=== PATIENT | male | born 1955 | race Two or more races ===

== ENCOUNTER 2021-09-30 21:34 | Inpatient (IN) | payer MEDICAID, MEDICARE ==
[~2021-09-30] VITALS: Ht 157.5 cm; Wt 90.9 kg
[2021-09-30] MEDS ORDERED: acetaminophen 325mg tablet PO STA (22:34)
[2021-09-30] MEDS ORDERED: enoxaparin 100mg/ml syringe SUBCUT ONE (22:35)
[2021-09-30 23:11] LABS: BASOPHILS % (AUTO) 0.3 % (0-1); EOSINOPHILS % (AUTO) 0.4 % (0-6); HEMATOCRIT 39.8 % (42.0-52.0); HEMOGLOBIN 13.7 g/dl (14.0-17.9); LYMPHOCYTES # (AUTO) 1.3 X10'3 (1.1-4.8); LYMPHOCYTES % (AUTO) 20.4 % (21-51); MEAN CORPUSCULAR HEMOGLOBIN 30.2 PG (27.0-31.0); MEAN CORPUSCULAR HGB CONC 34.4 g/dL (33.0-36.5); MEAN CORPUSCULAR VOLUME 87.9 FL (78-98); MEAN PLATELET VOLUME 8.8 FL (7.4-10.4); MONOCYTES # (AUTO) 0.4 X10'3 (0-0.9); MONOCYTES % (AUTO) 6.9 % (2-12); NEUTROPHILS # (AUTO) 4.5 X10'3 (1.8-7.7); PLATELET COUNT 278 X10'3 (140-440); RED BLOOD COUNT 4.53 X10'6 (4.70-6.10); RED CELL DISTRIBUTION WIDTH 13.3 % (11.5-14.5); WHITE BLOOD COUNT 6.3 X10'3 (4.5-11.0)
[2021-09-30 23:19] LABS: D-DIMER 0.74 MG/L FEU (0-0.50)
[2021-09-30 23:32] LABS: ALANINE AMINOTRANSFERASE 33 U/L (12-78); ALBUMIN 2.9 G/DL (3.4-5.0); ALBUMIN/GLOBULIN RATIO 0.8 (1.1-1.5); ALKALINE PHOSPHATASE 70 IU/L (46-116); ANION GAP 6 (8-16); ASPARTATE AMINO TRANSFERASE 29 U/L (10-37); BILIRUBIN,TOTAL 0.4 MG/DL (0.1-1.0); BLOOD UREA NITROGEN 15 MG/DL (7-18); BUN/CREATININE RATIO 20.8 (5.4-32.0); C-REACTIVE PROTEIN 10.59 MG/DL (0.0-0.5); CALCIUM 8.3 MG/DL (8.5-10.1); CHLORIDE 107 MMOL/L (99-107); CREATININE 0.72 MG/DL (0.60-1.10); GLUCOSE 133 MG/DL (70-104); MAGNESIUM 2.4 MG/DL (1.5-2.4); POTASSIUM 4.2 MMOL/L (3.5-5.1); SODIUM 139 MMOL/L (135-145); TOTAL CARBON DIOXIDE 25.9 MMOL/L (24-32); TOTAL PROTEIN 6.6 G/DL (6.4-8.2); eGFR > 90 ML/MIN
[2021-09-30] MEDS ORDERED: iohexol 350MG/ML 100ml bottle IV ONE (23:34)
--- NOTE | 2021-10-01 01:20 | NUR ---
PATIENT TAKEN OFF OF O2 AND WALKED AROUND IN CIRCLES IN HIS ROOM. SATURATIONS DROPPED TO 87%; PATIENT WAS SYMPTOMATIC WITH MILD DYSPNEA, FATIGUE, AND "FELT THE URGE TO COUGH." DR. PEREZ WAS INFORMED. PATIENT WAS PLACED BACK ON 2L AND SATURATION STABILIZED AT 91%.
--- NOTE | 2021-10-01 01:45 | NUR ---
TENISHA, THE PATIENT'S DAUGHTER, PHONE NUMBER IS [phone]. SHE HAS BEEN TRANSLATING FOR THE PATIENT.
[2021-10-01] MEDS ORDERED: DEXAMETHASONE 6 MG TABLET PO STA (01:48)
[2021-10-01] MEDS ORDERED: REMDESIVIR INJ 200 MG in normal saline 100ml IV soln 100 ML IV ONE (01:50)
[2021-10-01] MEDS ORDERED: acetaminophen 325mg tablet PO PRN ×2 (02:00)
[2021-10-01] MEDS ORDERED: magnesium 2GM in 50ml NS 50 ML IV PRN (02:00)
[2021-10-01] MEDS ORDERED: potassium CL 10mEq/100ml bag 100 ML IV PRN (02:00)
[2021-10-01] MEDS ORDERED: ondansetron/PF 4mg/2ml inj IV PRN (02:00)
[2021-10-01] MEDS ORDERED: magnesium 4gm in 100ml NS 100 ML IV PRN (02:00)
[2021-10-01] MEDS ORDERED: potassium Cl 20 mEq SR tablet PO PRN ×2 (02:00)
[2021-10-01] MEDS ORDERED: magnesium Cl slow-release 64mg tablet PO PRN (02:00)
[2021-10-01] MEDS ORDERED: CefTRIAXone 2gm/D5W 50ml BAG 50 ML IV ONE (02:05)
[2021-10-01] MEDS ORDERED: normal saline 1000ML IV soln IVB ONE (02:55)
[2021-10-01 04:18] VITALS: BP 155/86
[2021-10-01] MEDS ORDERED: DEXAMETHASONE 6 MG TABLET PO SCH (08:00)
[2021-10-01] MEDS ORDERED: enoxaparin 60mg/0.6ml syringe SUBCUT SCH (08:00)
[2021-10-01] MEDS: K and/or MAG REPLACEMENT MC SCH ×2 (08:00→20:00)
[2021-10-01] MEDS ORDERED: enoxaparin 30mg/0.3ml syringe SUBCUT SCH (08:00)
[2021-10-01 10:00] VITALS: BP 115/42
[2021-10-01] MEDS ORDERED: SIMV-42 PO (10:16)
[2021-10-01] MEDS ORDERED: TERA5CAP4 PO (10:16)
[2021-10-01] MEDS: dexamethasone 4mg/ml inj IV SCH ×2 (11:33→20:00)
[2021-10-01] MEDS: enoxaparin 40mg/0.4ml syringe SQ SCH ×2 (11:34→20:00)
[2021-10-01 14:00] VITALS: BP 139/64
[2021-10-01 17:37] VITALS: BP 131/67
--- NOTE | 2021-10-01 18:02 | NUR ---
Patient has been taking off oxygen to walk around in the room, which is the reason behind the lower O2 sat. he has been instructed to call for help and to keep his oxygen on as ordered. daughter is aware.
[2021-10-01] MEDS ORDERED: temazepam 15mg capsule PO PRN (21:00)
[2021-10-01 22:00] VITALS: BP 136/63
[2021-10-02 01:34] VITALS: BP 110/65
[2021-10-02 06:00] VITALS: BP 143/53
[2021-10-02 07:48] LABS: BASOPHILS % (AUTO) 0.1 % (0-1); EOSINOPHILS % (AUTO) 0 % (0-6); HEMATOCRIT 38.8 % (42.0-52.0); HEMOGLOBIN 12.9 g/dl (14.0-17.9); LYMPHOCYTES # (AUTO) 0.8 X10'3 (1.1-4.8); LYMPHOCYTES % (AUTO) 10.4 % (21-51); MEAN CORPUSCULAR HEMOGLOBIN 29.9 PG (27.0-31.0); MEAN CORPUSCULAR HGB CONC 33.3 g/dL (33.0-36.5); MEAN CORPUSCULAR VOLUME 89.8 FL (78-98); MEAN PLATELET VOLUME 9.3 FL (7.4-10.4); MONOCYTES # (AUTO) 0.5 X10'3 (0-0.9); NEUTROPHILS # (AUTO) 6.3 X10'3 (1.8-7.7); NEUTROPHILS % (AUTO) 82.5 % (42-75); PLATELET COUNT 374 X10'3 (140-440); RED BLOOD COUNT 4.33 X10'6 (4.70-6.10); RED CELL DISTRIBUTION WIDTH 13.2 % (11.5-14.5); WHITE BLOOD COUNT 7.6 X10'3 (4.5-11.0)
[2021-10-02] MEDS ORDERED: REMDESIVIR INJ 100 MG in normal saline 100ml IV soln 100 ML IV SCH (08:00)
[2021-10-02 08:23] LABS: D-DIMER 0.35 MG/L FEU (0-0.50)
[2021-10-02 08:33] LABS: ALANINE AMINOTRANSFERASE 40 U/L (12-78); ALBUMIN 2.6 G/DL (3.4-5.0); ALBUMIN/GLOBULIN RATIO 0.7 (1.1-1.5); ANION GAP 8 (8-16); ASPARTATE AMINO TRANSFERASE 19 U/L (10-37); BILIRUBIN,TOTAL 0.3 MG/DL (0.1-1.0); BLOOD UREA NITROGEN 19 MG/DL (7-18); C-REACTIVE PROTEIN 3.52 MG/DL (0.0-0.5); CALCIUM 8.3 MG/DL (8.5-10.1); CHLORIDE 110 MMOL/L (99-107); CREATININE 0.73 MG/DL (0.60-1.10); GLUCOSE 151 MG/DL (70-104); LACTATE DEHYDROGENASE 299 U/L (85-227); POTASSIUM 4.7 MMOL/L (3.5-5.1); SODIUM 141 MMOL/L (135-145); TOTAL CARBON DIOXIDE 22.6 MMOL/L (24-32); TOTAL PROTEIN 6.3 G/DL (6.4-8.2); eGFR > 90 ML/MIN
[2021-10-02] MEDS: dexamethasone 4mg/ml inj IV SCH ×2 (08:45→20:17)
[2021-10-02] MEDS: REMDESIVIR INJ 100 MG in normal saline 100ml IV soln 100 ML IV SCH (08:46)
[2021-10-02] MEDS: enoxaparin 40mg/0.4ml syringe SQ SCH ×2 (08:49→21:10)
[2021-10-02 08:54] LABS: ALKALINE PHOSPHATASE 62 IU/L (46-116)
[2021-10-02] MEDS: K and/or MAG REPLACEMENT MC SCH ×2 (08:59→20:00)
[2021-10-02 10:00] VITALS: BP 120/59
[2021-10-02 15:00] VITALS: BP 128/57
[2021-10-02 18:00] VITALS: BP 132/57
[2021-10-02] MEDS: terazosin 5mg capsule PO SCH (20:16)
[2021-10-02] MEDS: atorvastatin 10mg tablet PO SCH (20:17)
[2021-10-02 22:00] VITALS: BP 152/67
[2021-10-03 00:45] LABS: ABG BASE EXCESS 1.9 mmol/L (-2.0-2.0); ABG OXYGEN SATURATION 88.1 % (94-97); ABG PCO2 (T) 33.9 mmHg (35.0-48.0); ABG PO2 (T) 49.5 mmHg (75.0-100.0); ALLEN'S TEST POSITIVE; FCOHb 0.3 % (0.0-3.9); FLOW 10 L/min; FMetHb 0.3 % (0.0-1.5); FO2Hb 87.6 % (94-97); PATIENT TEMPERATURE 36.6; TOTAL HEMOGLOBIN 14.6 G/dl (14.0-18.0)
[2021-10-03] MEDS ORDERED: guaiFENesin 200 MG/10 ML oral syrup UD cup PO PRN ×2 (01:00→01:25)
--- NOTE | 2021-10-03 01:10 | NUR ---
patient in siting on the edge of bed awake and alert intermittent productive cough mucus tanged in color 02 sat 82% at 5l NC patient was placed on high flow at 10l NC call placed to Md DR Chavez new order for chest X-ray and ABG. also RT notified. 02 at 90%. critical ABG result received new order RT eval and treat and new order for robitussin prn
[2021-10-03 02:00] VITALS: BP 133/67
--- NOTE | 2021-10-03 05:42 | NUR ---
patient remained on high flow at 15L 02 sat remained 92-96% no distress noted will continue to monitor.
[2021-10-03 06:00] VITALS: BP 147/63
[2021-10-03 06:49] LABS: BASOPHILS % (AUTO) 0 % (0-1); D-DIMER 0.36 MG/L FEU (0-0.50); EOSINOPHILS % (AUTO) 0 % (0-6); HEMATOCRIT 38.9 % (42.0-52.0); HEMOGLOBIN 12.9 g/dl (14.0-17.9); LYMPHOCYTES # (AUTO) 0.9 X10'3 (1.1-4.8); LYMPHOCYTES % (AUTO) 10.7 % (21-51); MEAN CORPUSCULAR HEMOGLOBIN 29.8 PG (27.0-31.0); MEAN CORPUSCULAR HGB CONC 33.2 g/dL (33.0-36.5); MEAN CORPUSCULAR VOLUME 89.8 FL (78-98); MEAN PLATELET VOLUME 9.3 FL (7.4-10.4); MONOCYTES # (AUTO) 0.6 X10'3 (0-0.9); MONOCYTES % (AUTO) 7.4 % (2-12); NEUTROPHILS # (AUTO) 7.1 X10'3 (1.8-7.7); NEUTROPHILS % (AUTO) 81.9 % (42-75); PLATELET COUNT 398 X10'3 (140-440); RED BLOOD COUNT 4.33 X10'6 (4.70-6.10); RED CELL DISTRIBUTION WIDTH 13.3 % (11.5-14.5); WHITE BLOOD COUNT 8.6 X10'3 (4.5-11.0)
[2021-10-03 06:58] LABS: ALANINE AMINOTRANSFERASE 33 U/L (12-78); ALBUMIN 2.6 G/DL (3.4-5.0); ALBUMIN/GLOBULIN RATIO 0.8 (1.1-1.5); ALKALINE PHOSPHATASE 59 IU/L (46-116); ANION GAP 11 (8-16); ASPARTATE AMINO TRANSFERASE 15 U/L (10-37); BILIRUBIN,TOTAL 0.4 MG/DL (0.1-1.0); BLOOD UREA NITROGEN 24 MG/DL (7-18); BUN/CREATININE RATIO 30.4 (5.4-32.0); C-REACTIVE PROTEIN 1.95 MG/DL (0.0-0.5); CALCIUM 7.9 MG/DL (8.5-10.1); CHLORIDE 107 MMOL/L (99-107); CREATININE 0.79 MG/DL (0.60-1.10); GLUCOSE 135 MG/DL (70-104); LACTATE DEHYDROGENASE 242 U/L (85-227); POTASSIUM 4.7 MMOL/L (3.5-5.1); SODIUM 142 MMOL/L (135-145); TOTAL CARBON DIOXIDE 24.1 MMOL/L (24-32); TOTAL PROTEIN 5.9 G/DL (6.4-8.2); eGFR > 90 ML/MIN
[2021-10-03] MEDS: REMDESIVIR INJ 100 MG in normal saline 100ml IV soln 100 ML IV SCH (07:41)
[2021-10-03] MEDS: terazosin 5mg capsule PO SCH ×2 (07:41→20:00)
[2021-10-03] MEDS: dexamethasone 4mg/ml inj IV SCH ×2 (07:41→20:00)
[2021-10-03] MEDS: enoxaparin 40mg/0.4ml syringe SQ SCH ×2 (07:41→20:00)
[2021-10-03] MEDS: K and/or MAG REPLACEMENT MC SCH ×2 (08:00→20:00)
[2021-10-03 10:00] VITALS: BP 122/52
--- NOTE | 2021-10-03 13:17 | NUR ---
Initial: Pt admit for JULIO CESAR GUSTAFSON. Currently on a regular diet and eating well, documented with 100% PO intake throughout LOS meeting estimated nutrient needs. LBM 09/30. D/w dietary to send prunes and prune juice with next meal to assist with bowel regularity. Will continue to follow and monitor need for further nutrition intervention. Recommendations: 1) Continue regular diet 2) Monitor need for additional protein for satiety 3) Routine bowel care 4) Scaled weight this admit; weekly scaled weights thereafter Addendum: 10/03/21 at [address] Amended: Links added.
[2021-10-03 14:00] VITALS: BP 119/51
[2021-10-03 18:00] VITALS: BP 133/66
--- NOTE | 2021-10-03 18:50 | NUR ---
Problems reprioritized. Patient report given, questions answered & plan of care reviewed with Herlinda BOYCE.
[2021-10-03] MEDS: atorvastatin 10mg tablet PO SCH (21:30)
[2021-10-03 22:00] VITALS: BP 132/61
[2021-10-04] VITALS (7 sets, daily range): BP systolic 96–125; BP diastolic 44–61
--- NOTE | 2021-10-04 06:36 | NUR ---
Problems reprioritized. Patient report given, questions answered & plan of care reviewed with MUA.
[2021-10-04 06:44] LABS: D-DIMER 0.32 MG/L FEU (0-0.50)
[2021-10-04 06:55] LABS: BASOPHILS % (AUTO) 0 % (0-1); EOSINOPHILS % (AUTO) 0 % (0-6); HEMATOCRIT 40.4 % (42.0-52.0); HEMOGLOBIN 13.3 g/dl (14.0-17.9); LYMPHOCYTES # (AUTO) 0.7 X10'3 (1.1-4.8); LYMPHOCYTES % (AUTO) 8.3 % (21-51); MEAN CORPUSCULAR HEMOGLOBIN 29.8 PG (27.0-31.0); MEAN CORPUSCULAR VOLUME 90.3 FL (78-98); MEAN PLATELET VOLUME 9.4 FL (7.4-10.4); MONOCYTES # (AUTO) 0.6 X10'3 (0-0.9); MONOCYTES % (AUTO) 6.8 % (2-12); NEUTROPHILS # (AUTO) 7.2 X10'3 (1.8-7.7); NEUTROPHILS % (AUTO) 84.9 % (42-75); PLATELET COUNT 426 X10'3 (140-440); RED BLOOD COUNT 4.48 X10'6 (4.70-6.10); RED CELL DISTRIBUTION WIDTH 13.6 % (11.5-14.5); WHITE BLOOD COUNT 8.5 X10'3 (4.5-11.0)
[2021-10-04 07:10] LABS: ALANINE AMINOTRANSFERASE 39 U/L (12-78); ALBUMIN 2.6 G/DL (3.4-5.0); ALBUMIN/GLOBULIN RATIO 0.8 (1.1-1.5); ALKALINE PHOSPHATASE 62 IU/L (46-116); ANION GAP 12 (8-16); ASPARTATE AMINO TRANSFERASE 16 U/L (10-37); BILIRUBIN,TOTAL 0.3 MG/DL (0.1-1.0); BLOOD UREA NITROGEN 23 MG/DL (7-18); BUN/CREATININE RATIO 33.8 (5.4-32.0); C-REACTIVE PROTEIN 1.13 MG/DL (0.0-0.5); CALCIUM 8.1 MG/DL (8.5-10.1); CHLORIDE 105 MMOL/L (99-107); CREATININE 0.68 MG/DL (0.60-1.10); GLUCOSE 149 MG/DL (70-104); LACTATE DEHYDROGENASE 227 U/L (85-227); SODIUM 141 MMOL/L (135-145); TOTAL CARBON DIOXIDE 24.4 MMOL/L (24-32); TOTAL PROTEIN 5.8 G/DL (6.4-8.2); eGFR > 90 ML/MIN
[2021-10-04] MEDS: dexamethasone 4mg/ml inj IV SCH ×2 (07:50→20:13)
[2021-10-04] MEDS: terazosin 5mg capsule PO SCH ×2 (07:50→20:12)
[2021-10-04] MEDS: enoxaparin 40mg/0.4ml syringe SQ SCH ×2 (07:51→20:12)
[2021-10-04] MEDS: REMDESIVIR INJ 100 MG in normal saline 100ml IV soln 100 ML IV SCH (07:51)
[2021-10-04] MEDS: K and/or MAG REPLACEMENT MC SCH ×2 (08:00→19:16)
[2021-10-04] MEDS: atorvastatin 10mg tablet PO SCH (20:12)
[2021-10-05 02:01] VITALS: BP 98/45
[2021-10-05 06:00] VITALS: BP 98/45
--- NOTE | 2021-10-05 06:30 | NUR ---
Patient in room [facility]TH[facility] 4023. I have received report from Lucy and had the opportunity to ask questions and assume patient care.
[2021-10-05 06:51] LABS: BASOPHILS % (AUTO) 0 % (0-1); EOSINOPHILS % (AUTO) 0.1 % (0-6); HEMATOCRIT 40.1 % (42.0-52.0); HEMOGLOBIN 13.4 g/dl (14.0-17.9); LYMPHOCYTES # (AUTO) 0.8 X10'3 (1.1-4.8); LYMPHOCYTES % (AUTO) 10.9 % (21-51); MEAN CORPUSCULAR HEMOGLOBIN 29.8 PG (27.0-31.0); MEAN CORPUSCULAR HGB CONC 33.4 g/dL (33.0-36.5); MEAN CORPUSCULAR VOLUME 89.4 FL (78-98); MEAN PLATELET VOLUME 9.1 FL (7.4-10.4); MONOCYTES # (AUTO) 0.7 X10'3 (0-0.9); MONOCYTES % (AUTO) 8.8 % (2-12); NEUTROPHILS # (AUTO) 5.9 X10'3 (1.8-7.7); NEUTROPHILS % (AUTO) 80.2 % (42-75); PLATELET COUNT 459 X10'3 (140-440); RED BLOOD COUNT 4.48 X10'6 (4.70-6.10); RED CELL DISTRIBUTION WIDTH 13.3 % (11.5-14.5); WHITE BLOOD COUNT 7.4 X10'3 (4.5-11.0)
[2021-10-05 07:35] LABS: ALANINE AMINOTRANSFERASE 35 U/L (12-78); ALBUMIN 2.5 G/DL (3.4-5.0); ALBUMIN/GLOBULIN RATIO 0.8 (1.1-1.5); ALKALINE PHOSPHATASE 62 IU/L (46-116); ANION GAP 10 (8-16); ASPARTATE AMINO TRANSFERASE 13 U/L (10-37); BILIRUBIN,TOTAL 0.4 MG/DL (0.1-1.0); BLOOD UREA NITROGEN 20 MG/DL (7-18); BUN/CREATININE RATIO 28.6 (5.4-32.0); C-REACTIVE PROTEIN 0.71 MG/DL (0.0-0.5); CALCIUM 8.2 MG/DL (8.5-10.1); CHLORIDE 104 MMOL/L (99-107); GLUCOSE 133 MG/DL (70-104); LACTATE DEHYDROGENASE 208 U/L (85-227); POTASSIUM 4.9 MMOL/L (3.5-5.1); SODIUM 139 MMOL/L (135-145); TOTAL CARBON DIOXIDE 25.1 MMOL/L (24-32); TOTAL PROTEIN 5.7 G/DL (6.4-8.2); eGFR > 90 ML/MIN
[2021-10-05 07:37] LABS: D-DIMER 0.33 MG/L FEU (0-0.50)
[2021-10-05] MEDS: REMDESIVIR INJ 100 MG in normal saline 100ml IV soln 100 ML IV SCH (07:37)
[2021-10-05] MEDS: dexamethasone 4mg/ml inj IV SCH ×2 (07:37→19:44)
[2021-10-05] MEDS: terazosin 5mg capsule PO SCH ×2 (07:37→19:44)
[2021-10-05] MEDS: enoxaparin 40mg/0.4ml syringe SQ SCH ×2 (07:37→19:44)
[2021-10-05] MEDS: K and/or MAG REPLACEMENT MC SCH ×2 (08:00→19:07)
[2021-10-05 10:00] VITALS: BP 102/52
[2021-10-05 18:00] VITALS: BP 120/64
[2021-10-05] MEDS: atorvastatin 10mg tablet PO SCH (19:44)
[2021-10-05 22:00] VITALS: BP 118/54
[2021-10-06 02:00] VITALS: BP 117/60
[2021-10-06 06:00] VITALS: BP 112/60
[2021-10-06] MEDS: dexamethasone 4mg/ml inj IV SCH (07:34)
[2021-10-06] MEDS: enoxaparin 40mg/0.4ml syringe SQ SCH (07:35)
[2021-10-06] MEDS: terazosin 5mg capsule PO SCH (07:35)
[2021-10-06 08:11] LABS: BASOPHILS % (AUTO) 0.1 % (0-1); EOSINOPHILS % (AUTO) 0.3 % (0-6); HEMATOCRIT 40.7 % (42.0-52.0); HEMOGLOBIN 13.6 g/dl (14.0-17.9); LYMPHOCYTES # (AUTO) 0.7 X10'3 (1.1-4.8); LYMPHOCYTES % (AUTO) 10.9 % (21-51); MEAN CORPUSCULAR HEMOGLOBIN 29.9 PG (27.0-31.0); MEAN CORPUSCULAR HGB CONC 33.5 g/dL (33.0-36.5); MEAN CORPUSCULAR VOLUME 89.2 FL (78-98); MEAN PLATELET VOLUME 9.4 FL (7.4-10.4); MONOCYTES # (AUTO) 0.6 X10'3 (0-0.9); MONOCYTES % (AUTO) 8.3 % (2-12); NEUTROPHILS # (AUTO) 5.5 X10'3 (1.8-7.7); NEUTROPHILS % (AUTO) 80.4 % (42-75); PLATELET COUNT 494 X10'3 (140-440); RED BLOOD COUNT 4.56 X10'6 (4.70-6.10); RED CELL DISTRIBUTION WIDTH 13.3 % (11.5-14.5); WHITE BLOOD COUNT 6.9 X10'3 (4.5-11.0)
[2021-10-06 08:29] LABS: ALANINE AMINOTRANSFERASE 37 U/L (12-78); ALBUMIN 2.6 G/DL (3.4-5.0); ALBUMIN/GLOBULIN RATIO 0.8 (1.1-1.5); ALKALINE PHOSPHATASE 63 IU/L (46-116); ANION GAP 13 (8-16); ASPARTATE AMINO TRANSFERASE 16 U/L (10-37); BILIRUBIN,TOTAL 0.3 MG/DL (0.1-1.0); BLOOD UREA NITROGEN 22 MG/DL (7-18); BUN/CREATININE RATIO 29.3 (5.4-32.0); C-REACTIVE PROTEIN 0.41 MG/DL (0.0-0.5); CALCIUM 8.2 MG/DL (8.5-10.1); CHLORIDE 106 MMOL/L (99-107); CREATININE 0.75 MG/DL (0.60-1.10); GLUCOSE 141 MG/DL (70-104); LACTATE DEHYDROGENASE 208 U/L (85-227); POTASSIUM 5.2 MMOL/L (3.5-5.1); SODIUM 144 MMOL/L (135-145); TOTAL CARBON DIOXIDE 25.5 MMOL/L (24-32); TOTAL PROTEIN 5.7 G/DL (6.4-8.2); eGFR > 90 ML/MIN
[2021-10-06 10:00] VITALS: BP 113/32
[2021-10-06 14:00] VITALS: BP 120/48
--- NOTE | 2021-10-06 15:13 | NUR ---
0511 Robledo: Waiting for D/C order to be discharged to [facility]. Please advise [facility] [phone]. Page to
--- NOTE | 2021-10-06 17:19 | NUR ---
Problems reprioritized. Patient report given, questions answered & plan of care reviewed with Evita Zepeda at . Patient transported via ground ambulance.
== END 2021-10-06 16:30 | DRG 177 ==
LOC: ER 21:36 → ED HOLD 10-01 02:01 → ORTHO 4S 10-01 03:56
PROVIDERS: ADMIT Internal Medicine; ATTEND Family Medicine
PROC: B32T1ZZ Computerized Tomography (CT Scan) of Left Pulmonary Artery using Low Osmolar Contrast (ICD-10-PCS; 2021-09-30)
PROC: B3201ZZ Computerized Tomography (CT Scan) of Thoracic Aorta using Low Osmolar Contrast (ICD-10-PCS; 2021-09-30)
PROC: B32S1ZZ Computerized Tomography (CT Scan) of Right Pulmonary Artery using Low Osmolar Contrast (ICD-10-PCS; 2021-09-30)
PROC: XW033E5 Introduction of Remdesivir Anti-infective into Peripheral Vein, Percutaneous Approach, New Technology Group 5 (ICD-10-PCS; principal; 2021-10-01)
PROC: 5A0945A Assistance with Respiratory Ventilation, 24-96 Consecutive Hours, High Flow/Velocity Cannula (ICD-10-PCS; 2021-10-03)
DX: U07.1 COVID-19 (principal); J12.82 Pneumonia due to coronavirus disease 2019; J96.01 Acute respiratory failure with hypoxia; E78.5 Hyperlipidemia, unspecified; I48.91 Unspecified atrial fibrillation; N40.0 Benign prostatic hyperplasia without lower urinary tract symptoms
CPT/HCPCS: 36415; 36600; 71045; 71275; 80053; 82803; 83605; 83615; 83735; 84145; 85018; 85025; 85379; 86140; 87040; 87081; 93005; 94667; 94668; 94760; 96372; 97110; 97116; 97161; 97535; 99291; G0378; J0696; J1100; J1650; J3490; J7030; J8540; Q9967

== ENCOUNTER 2023-12-01 18:38 | Emergency (ER) | payer MEDICARE, OTHER ==
[~2023-12-01] VITALS: Ht 157.5 cm; Wt 90.9 kg
[~2023-12-01 18:38] MED LIST: SIMV-42 PO; TERA5CAP4 PO
[2023-12-01 19:04] VITALS: BP 126/49; PULSE 56; RESP 19; TEMP 98.1; O2SAT 96
== END 2023-12-01 20:32 | disposition home or self-care (01) ==
LOC: ER 18:39
DX: R05.9 Cough, unspecified (principal); I48.91 Unspecified atrial fibrillation; Z95.0 Presence of cardiac pacemaker
CPT/HCPCS: 71045; 99283

== ENCOUNTER 2023-12-29 14:18 | Outpatient (CLI) | payer MEDICARE | END 2023-12-29 23:59 | disposition home or self-care (01) | LOC: RAD 14:18 | PROVIDERS: ATTEND Physician Assistant | DX: M25.562 Pain in left knee (principal) | CPT/HCPCS: 73564 ==